=== PATIENT | male | born 1965 | race Caucasian/White ===

== ENCOUNTER 2017-05-26 06:40 | Day surgery (SDC) | payer OTHER ==
[~2017-05-26 06:40] MED LIST: ALLOPURINOL300 MG; METFORMIN HCL500 MG; VASOTEC5 MG
== END 2017-05-26 11:55 | disposition home or self-care (01) ==
LOC: AMB-ENDOS 06:40
DX: K57.32 Diverticulitis of large intestine without perforation or abscess without bleeding (principal); K64.1 Second degree hemorrhoids

== ENCOUNTER 2017-11-21 12:32 | Emergency (ER) | payer OTHER ==
[~2017-11-21] VITALS: Ht 175.3 cm; Wt 79.4 kg
== END 2017-11-21 18:54 | disposition home or self-care (01) ==
LOC: ER 12:32
DX: K57.92 Diverticulitis of intestine, part unspecified, without perforation or abscess without bleeding (principal); R10.32 Left lower quadrant pain